=== PATIENT | male | born 1995 | race Hispanic/Latino ===

== ENCOUNTER 2018-02-01 12:04 | Emergency (ER) | payer OTHER, SELFPAY ==
[2018-02-01 12:05] VITALS: BP 121/83; PULSE 60; RESP 18; TEMP 36.6; O2SAT 98; BMI 25.8
--- NOTE | 2018-02-01 12:21 | ED.VISSUMM ---
- ER Visit Summary Date of Service: 02/01/18 Chief Complaint: Ear pain History of Present Illness: The patient is a 22 M who has right and left ear pain. Been ongoing for a week. It started out with a right ear pain. Now he has pain in both ears, left greater than right. He has had some drainage coming out of the left ear. He felt warm but did not check his temperature at home. He has had some mild sinus congestion. He took nothing for this at home. Physical Examination: Vital signs reviewed. HEENT exam reveals right TM erythema. He also has a left ear canal erythema with drainage. His sinuses are nontender. No swollen turbinates. His neck is supple. Heart is regular rate and rhythm. Lungs are clear. Abdomen soft. Neurologic exam normal Test Results: None performed Emergency Department Course and Treatment: Patient has otitis media on the right and external on the left. He will be treated with amoxicillin and Cortisporin otic. He will follow-up with his PCP. Treatment Plan: [] Disposition: Discharge Impression: Otitis media, right Otitis externa, left This note was generated with [employer] dictation software. It may contain incorrect words, spelling, and punctuation that were not noted in review of the chart prior to signing ED Disposition - Plan for ED Patient: Chief Complaint: Ear Problem Referrals: NOT,DEFINED [Primary Care Provider] -
--- NOTE | 2018-02-01 12:22 | ED.DEP ---
ED Disposition - Plan for ED Patient: Disposition: Home or Assisted Living Chief Complaint: Ear Problem Instructions: ED Otitis Media Acute Adult Prescriptions: Amoxicillin 500 mg PO TID #30 tab Neomycin/Polymyxin B/Hydrocort [Oyjowumn-Pdouqtctq-Xw Ear Susp] 4 drp OT TID #120 drops.susp Referrals: NOT,DEFINED [Primary Care Provider] -
== END 2018-02-01 12:42 | disposition home or self-care (01) ==
PROVIDERS: Emergency Provider Emergency Medicine
DX: H66.91 Otitis media, unspecified, right ear (principal); H60.92 Unspecified otitis externa, left ear
CPT/HCPCS: 99282; J7030